=== PATIENT | female | born 1980 | race Caucasian/White ===

== ENCOUNTER 2018-09-14 17:11 | Inpatient (IN) | payer OTHER ==
[~2018-09-14] VITALS: Ht 152.4 cm; Wt 3.2 kg
[2018-09-28] MEDS ORDERED: ZANTAC300 MG PO (15:30)
[2018-09-28] MEDS ORDERED: PRENATAL 19 TA1 EACH PO (15:31)
[2018-09-28] MEDS ORDERED: PREVACID30 M1 PO (15:31)
== END 2018-10-12 10:44 | disposition home or self-care (01) | DRG 788 ==
LOC: LDR 10-09 09:38 → OB/GYN 10-09 09:38
PROVIDERS: ADMIT Obstetrics & Gynecology
PROC: 4A1HXCZ Monitoring of Products of Conception, Cardiac Rate, External Approach (ICD-10-PCS; 2018-10-09)
PROC: 4A033R1 Measurement of Arterial Saturation, Peripheral, Percutaneous Approach (ICD-10-PCS; 2018-10-09)
PROC: 10D00Z1 Extraction of Products of Conception, Low, Open Approach (ICD-10-PCS; principal; 2018-10-09 12:00)
DX: O34.211 Maternal care for low transverse scar from previous cesarean delivery (principal); O75.82 Onset (spontaneous) of labor after 37 completed weeks of gestation but before 39 completed weeks gestation, with delivery by (planned) cesarean section; Z3A.37 37 weeks gestation of pregnancy; Z37.0 Single live birth; Z22.330 Carrier of Group B streptococcus

== ENCOUNTER 2018-10-09 08:24 | Outpatient (CLI) | payer OTHER ==
[~2018-10-09 08:24] MED LIST: PRENATAL 19 TA1 EACH PO; PREVACID30 M1 PO; ZANTAC300 MG PO
== END 2018-10-09 09:35 | disposition still patient (30) ==
LOC: NST 08:24
DX: Z34.83 Encounter for supervision of other normal pregnancy, third trimester (principal)

== ENCOUNTER 2020-05-02 07:00 | Day surgery (SDC) | payer OTHER ==
[2020-05-02] MEDS ORDERED: MULTIPLE VITAM1 EACH PO (08:33)
== END 2020-05-02 13:00 | disposition home or self-care (01) ==
LOC: CIR.AMB 07:00
PROVIDERS: ATTEND Obstetrics & Gynecology Maternal & Fetal Medicine
DX: O02.1 Missed abortion (principal); Z20.828 Contact with and (suspected) exposure to other viral communicable diseases

== ENCOUNTER 2020-12-23 10:34 | Emergency (ER) | payer OTHER ==
[~2020-12-23] VITALS: Ht 152.4 cm; Wt 54.4 kg
[~2020-12-23 10:34] MED LIST changes: +MULTIPLE VITAM1 EACH PO
== END 2020-12-23 13:36 | disposition home or self-care (01) ==
LOC: ER 10:34
DX: R10.31 Right lower quadrant pain (principal)

== ENCOUNTER 2021-11-23 07:00 | Inpatient (IN) | payer OTHER ==
[~2021-11-23] VITALS: Ht 152.4 cm; Wt 65.3 kg
[2021-11-23] MEDS ORDERED: PEPCID AC10 MG PO (08:11)
[2021-11-23] MEDS ORDERED: MULTIPLE VITAM1 EAC2 PO (08:11)
[2021-11-30] MEDS ORDERED: PRENATAL TABLE1 EAC1 PO (13:11)
[2021-12-03] MEDS ORDERED: OXYC1TAB9 PO (07:35)
[2021-12-03] MEDS ORDERED: KETO10TA2 PO (07:35)
== END 2021-12-03 11:37 | disposition home or self-care (01) | DRG 788 ==
LOC: OB/GYN 11-30 12:44 → LDR 11-30 12:44 → OB/GYN 11-30 20:09
PROVIDERS: ADMIT Obstetrics & Gynecology; ATTEND Obstetrics & Gynecology
PROC: 4A1HXCZ Monitoring of Products of Conception, Cardiac Rate, External Approach (ICD-10-PCS; 2021-11-30)
PROC: 10D00Z1 Extraction of Products of Conception, Low, Open Approach (ICD-10-PCS; principal; 2021-11-30 18:00)
DX: O34.211 Maternal care for low transverse scar from previous cesarean delivery (principal); O99.820 Streptococcus B carrier state complicating pregnancy; Z3A.39 39 weeks gestation of pregnancy; Z37.0 Single live birth; Z20.822 Contact with and (suspected) exposure to COVID-19

== ENCOUNTER 2021-11-30 08:35 | Outpatient (CLI) | payer OTHER ==
[~2021-11-30 08:35] MED LIST changes: +MULTIPLE VITAM1 EAC2 PO; +PEPCID AC10 MG PO
[2021-11-30] MEDS ORDERED: PRENATAL TABLE1 EAC1 PO (13:11)
== END 2021-11-30 09:23 | disposition home or self-care (01) ==
LOC: NST 08:35
PROVIDERS: ATTEND Obstetrics & Gynecology Maternal & Fetal Medicine
DX: Z34.83 Encounter for supervision of other normal pregnancy, third trimester (principal)